=== PATIENT | female | born 1925 | race Caucasian/White ===

== ENCOUNTER 2017-03-21 10:10 | Emergency (ER) | payer OTHER, BC ==
--- NOTE | 2017-03-21 10:21 | PDOC ---
History of Present Illness - General Chief Complaint: Abscess Boil Stated Complaint: GUM INFECTION Time Seen by Provider: 03/21/17 10:20 History Source: Patient Exam Limitations: No Limitations - History of Present Illness Initial Comments: 03/21/17 10:21 The patient is an 89-year-old female who presents to the emergency department with concerns for a possible left lower tooth infection. She denies any pain at the area but feels that she has noted some gum swelling. She denies noting any discharge. She denies jaw swelling. She denies fever, chills, sweats, myalgias/ arthralgia, malaise/weakness/fatigue. She was unable to see her primary care physician or return to this. Past History - Past Medical History Allergies/Adverse Reactions: Allergies Allergy/AdvReac Type Severity Reaction Status Date / Time brimonidine tartrate Allergy Intermediate Unverified 03/13/15 13:03 [From Combigan] timolol maleate Allergy Intermediate Unverified 03/13/15 13:03 [From Combigan] Home Medications: Ambulatory Orders Ascorbic Acid [Vitamin C] 1,000 mg PO DAILY tablet 01/17/13 Beta-Carotene(A) W-C and E/Min [Ocuvite (Nf) -] 1 each PO DAILY tablet [place]-3 Fatty Acids/Fish Oil [Fish Oil 1,000 Mg Capsule] 1 each PO DAILY capsule 01/17/13 Ca Cmb No.1/Vit D3/B-6/FA/B12 [Vitamin D3 1,000 Unit Tablet] 1 each PO DAILY tablet 01/24/14 Dorzolamide HCl 1 drop OP OU BID 12/26/14 Folic Acid - 1 mg PO DAILY 03/13/15 Aspirin [Aspir 81] 81 mg PO DAILY 09/04/16 Amoxicillin - [Amoxicillin 500mg Capsule -] 500 mg PO TID #21 capsule 03/21/17 HTN: Yes Hypercholesterolemia: Yes - Psycho/Social/Smoking Cessation Hx Anxiety: No Suicidal Ideation: No Smoking History: Never smoked Hx Alcohol Use: No Review of Systems - Review of Systems Comments:: 03/21/17 10:22 CONSTITUTIONAL: Absent: fever, chills, fatigue EYES: Absent: visual changes ENT: Absent: ear pain, sore throat CARDIOVASCULAR: Absent: chest pain, palpitations, loss of consciousness RESPIRATORY: Absent: cough, SOB GI: Absent: abdominal pain, nausea, vomiting, constipation, diarrhea GENITOURINARY: Absent: dysuria, frequency, hematuria MUSKULOSKELETAL: Absent: back pain, arthralgia, myalgia SKIN: Absent: rash NEURO: Absent: headache, dizziness *Physical Exam - Physical Exam Comments: 03/21/17 10:22 GENERAL: Well-appearing, well-nourished. No apparent distress. HEENT: There is minimal gingival edema overlying the lateral aspect of tooth 21 and 22. There is no percussion tenderness of those teeth. There is no gingival tenderness of those teeth. There is no purulence noted at the area. Normocephalic, atraumatic. PERRL, EOM intact. CARDIOVASCULAR: Normal S1, S2. Regular rate and rhythm. PULMONARY: Clear to auscultation bilaterally. ABDOMEN: Soft, non-distended, non-tender. EXTREMITIES: Normal ROM in all four extremities. No gross deformities. SKIN: Warm, dry. No rash NEUROLOGICAL: No focal neurological deficits. Medical Decision Making - Medical Decision Making 03/21/17 10:23 The patient is well-appearing and in no acute distress She does have potential signs and symptoms of early dental abscess Given her age and the fact that she will not be able to see a dentist today, will prescribe amoxicillin to cover for possible developing abscess/infection Clinical impression: Possible early dental abscess She understands the absolute importance of seeing a dentist as soon as possible I discussed the physical exam findings and final diagnoses with the patient. I answered all of the patient's questions. The patient was satisfied with the care received and felt comfortable with the discharge plan and treatment plan. The patient will call their primary care physician within 24 hours to arrange follow-up and will return to the Emergency Department with any new, persistent or worsening symptoms. *DC/Admit/Observation/Transfer Diagnosis at time of Disposition: Dental infection - Discharge Dispostion Disposition: HOME Condition at time of disposition: Good - Prescriptions Prescriptions: Amoxicillin - [Amoxicillin 500mg Capsule -] 500 mg PO TID #21 capsule - Referrals Referrals: Ismael Bravo MD [Primary Care Provider] - - Patient Instructions Printed Discharge Instructions: DI for Tooth Abscess Additional Instructions: It is very important that you see your dentist as soon as possible. If you're unable to see your own dentist, you can try a dentist who was contacted information we provided him with. Return to the emergency department immediately with ANY new, persistent or worsening symptoms. You MUST call and follow up with your doctor tomorrow. Please make sure your doctor reviews the results of your emergency department evaluation.
[2017-03-21 10:27] VITALS: BP 142/70; PULSE 86; TEMP 98.8; BMI 26.8
== END 2017-03-21 10:37 | disposition home or self-care (01) ==
LOC: FER 10:10
DX: K04.7 Periapical abscess without sinus (principal); I10 Essential (primary) hypertension; E78.00 Pure hypercholesterolemia, unspecified
CPT/HCPCS: 99282-25